=== PATIENT | male | born 1945 | race Caucasian/White ===

== ENCOUNTER 2021-12-23 12:46 | Emergency (ER) | payer OTHER, MEDICARE | END 2021-12-23 14:16 | disposition home or self-care (01) | LOC: MADERS 12:46 | DX: S80.12XA Contusion of left lower leg, initial encounter (principal); S80.11XA Contusion of right lower leg, initial encounter; I10 Essential (primary) hypertension; Z79.899 Other long term (current) drug therapy; V89.2XXA Person injured in unspecified motor-vehicle accident, traffic, initial encounter | CPT/HCPCS: G0390 ==